=== PATIENT | female | born 1970 | race African-American/Black ===

== ENCOUNTER 2016-11-05 17:04 | Inpatient (IN) | payer OTHER ==
--- NOTE | ~2016-11-05 | DS ---
Discharge Summary [facility] [address] [place]. [address] NAME: LOLY GRIFFIN\ : 66 STATUS : DIS IN PAT#: [id number] AGE: 45 ADM/REG DATE : 11/06/16 MR#: [id number] REPORT SERV DATE: 11/08/16 DICTATED BY: JR. HOFFMAN WILLIAM JOHN DATE: 11/07/16 REPORT STATUS : Draft TRANSCRIBED BY: CHRISTINE DATE: 11/07/16 ADMISSION DATE: 11/06/2016 DISCHARGE DATE: 11/07/2016 DISCHARGE DIAGNOSES: 1. Acute kidney injury secondary to dehydration in the setting of diuretics and angiotensin receptor blockers. 2. Dehydration. 3. Essential hypertension. 4. Obstructive sleep apnea, on CPAP. 5. Bipolar disorder. 6. Chronic back pain. 7. Morbid obesity, with a body mass index of 51.7. OPERATIONS/PROCEDURES AND TREATMENTS: Include: Renal ultrasound done 11/06/2016, which showed kidneys to be symmetric and normal. There was an incidental left benign renal cyst. Otherwise, normal study. DISCHARGE MEDICATIONS: Include: 1. Norvasc 10 mg orally daily. 2. Cyanocobalamin 1000 mcg sublingually daily. 3. Ativan 1 mg orally daily p.r.n. 4. Hydroxyzine 50 mg four times a day. 5. Lyrica 75 mg twice a day. 6. [place] 5/325 one tablet every 8 hours as needed. 7. Flexeril 10 mg every 8 hours as needed. 8. Calcium citrate 1200 mg daily. 9. Multivitamin one tablet orally daily. 10.Benefiber daily. 11.Colace 100 mg daily as needed. Deleted off her current med list would include Cozaar 100 daily and hydrochlorothiazide 25 mg daily. CONSULTING PHYSICIAN: Dr. Haris Cuellar of Nephrology. HOSPITAL COURSE: The patient is a 45-year-old female who presented to the emergency room on 11/05/2016 with complaint of feeling lightheaded and dizzy. The patient also said she has had a very dry mouth for two to three days, and her urine output had significantly decreased. The patient said the symptoms had been going on increasingly for the past few weeks. She felt like she was drinking more fluid and had doubled up on her hydrochlorothiazide thinking this would help the problem. However, her urine output fell off and she presented to the emergency room. Of note, the patient is actually losing weight to be a candidate for bariatric surgery, and she feels that her blood pressure has actually dropped because of her weight loss. Initial exam showed a blood pressure of 135/77, temperature 98.6, heart rate 102, respiratory rate of 16, and saturating 98% on room air. Discharge Summary [address] [address] NAME: LOLY GRIFFIN\ : 66 STATUS : DIS IN PAT#: [id number] AGE: 45 ADM/REG DATE : 11/06/16 MR#: [id number] REPORT SERV DATE: 11/08/16 DICTATED BY: JR. HOFFMAN WILLIAM JOHN DATE: 11/07/16 REPORT STATUS : Draft TRANSCRIBED BY: CHRISTINE DATE: 11/07/16 Exam was remarkable for morbid obesity with dry mucosal membranes. Otherwise, no significant abnormalities. Laboratory was significant for a BUN of 31 and creatinine 1.5 with a normal creatinine of less than 1 for this patient. For complete details, please see Dr. Tomlin's dictated history and physical. The patient was admitted to the Clinical Decision Unit. She was placed on IV fluids. Her angiotensin receptor charlene and hydrochlorothiazide were withheld, and Nephrology was consulted. Nephrology requested a renal ultrasound which is detailed above and is normal. The patient's renal function improved somewhat by hospital day #2 with a BUN of 26, creatinine 1.3. She was putting out urine. The patient remained on IV fluids, and by hospital day #3, her renal markers had normalized to a BUN of 19 and creatinine of 1. The patient's Gr catheter was removed, and she will be discharged home. The recommendation is the patient not be placed back on diuretic and angiotensin active medications. Regarding essential hypertension, the patient is well controlled on Norvasc 10 mg daily. The remainder of the patient's health problems were stable throughout the hospitalization and were not addressed. DISCHARGE DIET: Regular. ACTIVITY: As tolerated. FOLLOWUP: Followup will be with Kiya Denise in one week, her primary care physician. For discharge exam and laboratory, please see the daily progress note. FOLLOWUP ISSUES: 1. Recommend followup basic metabolic profile in one week. Follow up with Kiya Denise. 2. Would recommend withholding diuretic and angiotensin active medications. This discharge took 32 minutes for patient encounter, coordination of care, and documentation. WJF/YUANL Neil Hoffman Jr, MD / [id number] CC: Neil Hoffman Jr, MD Amanda M. Tedstrom
--- NOTE | ~2016-11-05 | PREOPHP ---
PreOp History and Physical [place] [id number] [facility] [place]. [address] NAME: LOLY GRIFFIN : 66 STATUS : ADM Hector PAT#: [id number] AGE: 45 ADM/REG DATE : 11/05/16 MR#: [id number] REPORT SERV DATE: 11/06/16 DICTATED BY: DEREK CUELLAR DATE: 11/05/16 REPORT STATUS : Draft TRANSCRIBED BY: CHRISTINE DATE: 11/05/16 TIME: 8:30 p.m. REASON FOR CONSULTATION: Acute kidney injury. ASSESSMENT: Acute kidney injury in a 45-year-old morbidly obese female with no clear cut underlying etiology except with a specific gravity of 1.017 on a urinalysis. No proteinuria or hematuria. The patient chronically on HCTZ and losartan. The differential diagnosis includes: 1. Dehydration. 2. Acute urinary retention. 3. Question underlying rhabdomyolysis and possible elevation in CPK. 4. although clinically she does not appear to have any features to suggest this. PLAN: Therefore is: 1. Gr catheter placed tonight. 2. Renal ultrasound. 3. Repeat urinalysis. 4. Agree with hydration. 5. Hold HCTZ and losartan. 6. I do not order serologies at this time unless there is no improvement in renal function with the above measures. HISTORY OF PRESENT ILLNESS: History is obtained from the patient and records available. She is a 45-year-old female, no prior history of chronic kidney disease or end-stage renal failure, baseline creatinine 0.96 as of 10/11/2015 now with a creatinine of 1.5 after coming to the ER. She called her primary care physician when she described reduced urine output over the weekend. She had last voided on Saturday with minimal urine output over the weekend and I was advised to come to the ER. She complains of a dry mouth, but otherwise, relatively asymptomatic. She has chronic edema of her left lower extremity. No history of pain around it. No rash. No history of hematuria, hemoptysis, hematemesis, rash, arthritic symptoms, NSAID use, or history of hemoptysis or change in vision or hearing. She has a strong family history of chronic kidney disease and end-stage renal failure. Mother is on dialysis and apparently a sister is approaching dialysis as well. With the above concern, she came to the ER for evaluation, noted to have a creatinine of 1.5, and was subsequently admitted to the hospital. She also is slightly anemic with a hemoglobin 11.1 and no thrombocytopenia. PAST MEDICAL HISTORY: Includes a history of hypertension, obesity, chronic back pain, bipolar disorder. She has had a partial hysterectomy, tubal ligation, and section. ALLERGIES: TO STADOL, SULFA, BACTRIM, AND LATEX. SOCIAL HISTORY: She does not smoke cigarettes. No alcohol or medication or street drug usage. PreOp History and Physical [address] [place]. [address] NAME: LOLY GRIFFIN : 66 STATUS : ADM Hector PAT#: [id number] AGE: 45 ADM/REG DATE : 11/05/16 MR#: [id number] REPORT SERV DATE: 11/06/16 DICTATED BY: DEREK CUELLAR DATE: 11/05/16 REPORT STATUS : Draft TRANSCRIBED BY: CHRISTINE DATE: 11/05/16 FAMILY HISTORY: As described above. Mother is on dialysis. HOME MEDICATIONS: Amlodipine, cyanocobalamin, Flexeril, Colace, HCTZ, [place], Vistaril, lorazepam, Cozaar, multivitamin, Lyrica, Benefiber. REVIEW OF SYSTEMS: As per the HPI. PHYSICAL EXAMINATION: GENERAL: She is a morbidly obese female, in no acute distress. Awake, alert, appropriate to questions. VITAL SIGNS: Blood pressure is running in the 130s/70s. Heart rates in the 70s and afebrile. HEENT: Pupils are equal and reactive to light. She is not pale or jaundiced. Oral mucosa is moist. No pharyngitis. NECK: Supple. No thyromegaly. No carotid bruits heard. Trachea is central. Air entry is equal bilaterally. CHEST: Clear to auscultation. Cardiac apex is not displaced. S1-S2. No rub. ABDOMEN: Nontender. No hepatosplenomegaly. No tenderness, guarding, or rebound. Bowel sounds normal. EXTREMITIES: She has left leg edema 1+, but there is no tenderness around the calf area. There is no rash. Peripheral pulses are present dorsalis pedis, posterior tibial. No acute arthritic findings noted. No rash. No loss of turgor. NEURO: She is awake, alert, and oriented to time, place, and person. Cranial nerves are intact and the affect does not appear depressed at this time. LAB WORK: Sodium 138, potassium 3.5, chloride 100, CO2 of 28, BUN 31, creatinine 1.51, hemoglobin 11.1, hematocrit 33.8. White count is 5.1, platelet count is 305,000. Urinalysis as described. Ultrasound is pending. MG/MODL Derek Cuellar M.D. / [id number] CC: Neil Hoffman Jr, MD
--- NOTE | ~2016-11-05 | HP ---
History And Physical [place] [id number] [facility] [place]. [address] NAME: LOLY GRIFFIN : 66 STATUS : ADM Hector PAT#: [id number] AGE: 45 ADM/REG DATE : 11/05/16 MR#: [id number] REPORT SERV DATE: 11/06/16 DICTATED BY: SAMMI PRATER DATE: 11/05/16 REPORT STATUS : Draft TRANSCRIBED BY: CHRISTINE DATE: 11/05/16 DATE OF ADMISSION: 11/05/2016 Ms. Griffin is a 45-year-old female patient who comes in today because of feeling extremely lightheaded, dizzy in the last few days. She also states that she has an extremely dry mouth in the last two to three days also. She also states that her urine output has significantly decreased to a point where she has not urinated at all for the last 24 hours and this has happened acutely. This scared her and hence, she decided to come into the ER. The patient states that for the last week or two, she has been feeling dizzy and does have dry mouth. She also has been urinating very little for the last week or more. She thought that drinking more fluids and doubling up on her hydrochlorothiazide would help this problem. She did exactly this about three or four days ago. Despite this, the patient states that her urine output did not improve and kept going lower and lower until for the last 24 hours or so, she has not urinated at all or urinated very little. Hence, the patient decided to come into the ER. REVIEW OF SYSTEMS: Negative for headaches, blurry vision, trouble swallowing, chest pain, shortness of breath, fever, nausea, vomiting, abdominal pain, dysuria, hematuria, blood in stool, joint pains, etc. Other than the chronic low back pain the patient has, she denies any other joint pains. PAST MEDICAL HISTORY: Significant for morbid obesity, obstructive sleep apnea for which the patient uses CPAP machine at home, hypertension for which she takes hydrochlorothiazide on a daily basis, bipolar disorder, anxiety predominant for which she sees a psychiatrist at [facility] and the patient is on hydroxyzine and Ativan at nighttime for this. The patient also has significant low back pain from degenerative disk disease of the lumbar spine for which she is disabled currently. She states that she sees a depilatory painter for this and she is on [place] 5/325 three to four times a day for this and this helps. PAST SURGICAL HISTORY: Nothing significant. The patient actually is waiting for weight loss surgery. SOCIAL HISTORY: The patient does not smoke or use any alcohol. The patient denies any illegal drug use. The patient is not . The patient does have a grown son who is in his 20s. FAMILY HISTORY: Positive for kidney problems in the family and many of her family members have had kidney disease and have also been on dialysis which is the main reason that the patient was really scared. History And Physical [address] [address] NAME: LOLY GRIFFIN : 66 STATUS : ADM Hector PAT#: [id number] AGE: 45 ADM/REG DATE : 11/05/16 MR#: [id number] REPORT SERV DATE: 11/06/16 DICTATED BY: SAMMI PRATER DATE: 11/05/16 REPORT STATUS : Draft TRANSCRIBED BY: CHRISTINE DATE: 11/05/16 ALLERGIES: PATIENT IS ALLERGIC TO STADOL, SULFA, BACTRIM, TRIMETHOPRIM AND LATEX. HOME MEDICATIONS: Include Norvasc 10 mg p.o. daily, vitamin B12, Flexeril 10 mg p.o. every eight hours, docusate 100 mg p.o. daily p.r.n., hydrochlorothiazide 25 mg once a day, [place] 5/325 p.o. t.i.d., hydroxyzine 50 mg p.o. four times a day, Ativan 1 mg p.o. at nighttime, losartan 100 mg once a day, multivitamins and mineral tablets once a day, Lyrica 75 mg twice a day, and Benefiber and calcium. PHYSICAL EXAMINATION: GENERAL: On examination, the patient is alert, awake, oriented, and does not seem to be in any distress. She is morbidly obese and her skin and mucous membranes appear dry at this time. VITAL SIGNS: I have on this patient show the following: Blood pressure is 135/77, temperature is 98.6, pulse is 102, respirations 16 per minute, O2 saturations 98% on room air. The patient is breathing comfortably on room air right now. HEENT: Unremarkable. There is no facial droop or facial asymmetry. NECK: There is no JVD or thyromegaly or lymphadenopathy. CARDIOVASCULAR SYSTEM: S1, S2 appreciated. Sinus rhythm. Mild tachycardia noted, but I could not appreciate any murmurs, rubs, or gallops. RESPIRATORY SYSTEM: Clear lungs. No rales or rhonchi. Good lung expansion noted, however, poor air entry especially to the lung bases given the patient's morbid obesity. ABDOMEN: Soft, nontender, nondistended. Bowel sounds are appreciated. Obese abdomen noted. No organomegaly noted. EXTREMITIES: There is mild 1+ bilateral ankle edema probably from chronic venous insufficiency, but I could not appreciate any other abnormalities in the extremities. Pedal pulses are felt. NEUROLOGICAL: No significant neurological deficits. PSYCHIATRIC: Patient does have a history of bipolar disorder with severe anxiety predominantly for which she takes medications as described above. MUSCULOSKELETAL: Patient does have chronic low back pain from DJD for which she states that she is disabled and sees a pain specialist through whom she gets [place] three times a day. LABORATORY DATA: Labs I have on this patient include a CBC that shows a WBC count of 5.1, hemoglobin 11.1, hematocrit 33.8, platelet count of 305. Electrolyte profile shows sodium 138, potassium 3.5, BUN is 31, creatinine is 1.5, glucose is normal, calcium is normal. Urinalysis shows no evidence of any significant UTI even though urine appearance is a little hazy and a few bacteria are seen. She is negative for leukocyte esterase, negative for nitrites and there is no blood in the urine. ASSESSMENT: 1. Oliguria, dizziness, dehydration, and acute kidney injury. For this, we will hold the patient's hydrochlorothiazide and gave her IV lactated Ringer at 125 mL an hour for 24 hours and consult Nephrology. 2. For her hypertension, we will continue her Norvasc. 3. Obstructive sleep apnea, continue home CPAP. 4. Bipolar disorder with generalized anxiety mainly-continue her home medications that include hydroxyzine 50 mg four times a day and Ativan 1 mg at nighttime. History And Physical [address] [place]. [address] NAME: LOLY GRIFFIN : 66 STATUS : ADM Hector PAT#: [id number] AGE: 45 ADM/REG DATE : 11/05/16 MR#: [id number] REPORT SERV DATE: 11/06/16 DICTATED BY: SAMMI PRATER DATE: 11/05/16 REPORT STATUS : Draft TRANSCRIBED BY: CHRISTINE DATE: 11/05/16 5. Chronic low back pain from degenerative joint disease, continue her home medication that includes Lortab or [place] 5/325 one p.o. t.i.d. 6. We will also obtain renal ultrasound at this time. 7. We will also go ahead and hold her Cozaar and hold her hydrochlorothiazide at this time. Given her dizziness I would like to hold her Lyrica too at this time. 8. We will observe and essentially put her under observation for the next 24 to 48 hours and see how she does and see how her numbers too. The patient is agreeable to this and we will admit the patient for observation. CAMELIA/CHRISTINE Sammi Prater M.D. / [id number]
[2016-11-05 15:54] LABS: BASOPHILS 0.6 %; BASOPHILS ABSOLUTE 0.03 10/3/uL (0.0-0.16); ER CBC TAT 0 Hrs 05 Mins; HEMATOCRIT 33.8 % (36.0-48.0); HEMOGLOBIN 11.1 g/dL (12.0-16.0); IMMATURE GRANULOCYTES 0.2 %; IMMATURE GRANULOCYTES ABSOLUTE 0.01 10/3/uL (0.0-0.11); LYMPHOCYTES 47.1 %; MEAN CORPUS HGB CONC 32.8 g/dL (32.0-36.0); MEAN CORPUSCULAR VOLUME 91.4 fL (80-100); MEAN PLATELET VOLUME 9.3 fL (9.2-13.0); MONOCYTES ABSOLUTE 0.46 10/3/uL (0.21-1.20); NEUTROPHILS 41.1 %; PLATELET COUNT 305 10/3/uL (150-400); RBC DISTRIBUTION WIDTH 13.1 % (12.0-16.0); WHITE BLOOD CELLS 5.1 10/3/uL (4.5-10.5)
[2016-11-05 15:55] LABS: MANUAL DIFF NO %
[2016-11-05 16:06] LABS: BUN (BLOOD UREA NITROGEN) 31 MG/DL (6-23); CALCIUM, SERUM 9.1 MG/DL (8.5-10.4); CHLORIDE, SERUM 100 MMOL/L (96-112); CO2 (CARBON DIOXIDE) 28 MMOL/L (24-34); CREATININE 1.51 MG/DL (0.55-1.02); GFR AFRICAN AMERICAN 47 ML/MIN (>=60); GFR NON AFRICAN AMERICAN 41 ML/MIN (>=60); GLUCOSE, SERUM 92 MG/DL (60-99); POTASSIUM, SERUM 3.5 MMOL/L (3.5-5.3); SODIUM, SERUM 138 MMOL/L (135-148)
[2016-11-05 16:28] LABS: ASCORBIC ACID (UR NOT ORDER) NEG (NEG); BILIRUBIN, URINE NEGATIVE (NEG); ER URINALYSIS TAT 0 Hrs 10 Mins; KETONE, URINE NEGATIVE (NEG); LEUKOCYTE ESTERASE(NOT OR NEG (NEG); NITRITE (URINE) NEG (NEG); WBC (NOT ORDERED) (RFLEX) 5 (0-5)
[2016-11-05] MEDS ORDERED: HYDROCHLOROT25 MG PO (17:43)
[2016-11-05] MEDS ORDERED: COZAAR100 MG PO (17:43)
[2016-11-05] MEDS ORDERED: VIST50 PO (17:43)
[2016-11-05] MEDS ORDERED: NORV10 PO (17:43)
[2016-11-05] MEDS ORDERED: ATV1 PO (17:44)
[2016-11-05] MEDS ORDERED: LYRICA75 PO (17:44)
[2016-11-05] MEDS ORDERED: FLEX PO (17:45)
[2016-11-05] MEDS ORDERED: NORCO1 TA1 PO (17:45)
[2016-11-05] MEDS ORDERED: CALCIUM CITRATE PO (17:46)
[2016-11-05] MEDS ORDERED: BENEFIBER PO (17:47)
[2016-11-05] MEDS ORDERED: VITAMIN B-121000 MC1 SL (17:47)
[2016-11-05] MEDS ORDERED: THERA M PLUS PO (17:47)
[2016-11-05] MEDS ORDERED: DSS PO (17:48)
[2016-11-06 01:21] LABS: ASCORBIC ACID (UR NOT ORDER) NEG (NEG); BILIRUBIN, URINE NEGATIVE (NEG); KETONE, URINE NEGATIVE (NEG); LEUKOCYTE ESTERASE(NOT OR NEG (NEG); WBC (NOT ORDERED) (RFLEX) 2 (0-5)
[2016-11-06 04:50] LABS: PARTIAL THROMBO TIME 27.8 SEC (22.5-37.2); PROTIME (NOT ORD) 13.1 SEC (12.0-14.5)
[2016-11-06 05:01] LABS: ALBUMIN 3.1 G/DL (3.5-5.0); ALKALINE PHOSPHATASE 73 U/L (45-117); CALCIUM, SERUM 8.6 MG/DL (8.5-10.4); CHLORIDE, SERUM 104 MMOL/L (96-112); CO2 (CARBON DIOXIDE) 29 MMOL/L (24-34); CREATININE 1.26 MG/DL (0.55-1.02); GFR AFRICAN AMERICAN 59 ML/MIN (>=60); GFR NON AFRICAN AMERICAN 51 ML/MIN (>=60); GLUCOSE, SERUM 103 MG/DL (60-99); PHOSPHORUS, SERUM 3.8 MG/DL (2.5-4.5); POTASSIUM, SERUM 3.5 MMOL/L (3.5-5.3); SGOT(AST) 23 U/L (5-40); SGPT(ALT) 32 U/L (5-65); SODIUM, SERUM 141 MMOL/L (135-148); TOTAL BILIRUBIN 0.4 MG/DL (0-1.2); TOTAL PROTEIN 6.9 G/DL (6.0-8.5)
[2016-11-06 05:07] LABS: BUN (BLOOD UREA NITROGEN) 26 MG/DL (6-23); DIRECT BILIRUBIN < 0.1 MG/DL (0.0-0.4); INDIRECT BILIRUBIN(NOT ORDER) 0.3 MG/DL (0.1-0.9)
[2016-11-06 05:11] LABS: BASOPHILS 0.4 %; BASOPHILS ABSOLUTE 0.02 10/3/uL (0.0-0.16); EOSINOPHILS 3.2 %; EOSINOPHILS ABSOLUTE 0.16 10/3/uL (0.0-0.53); HEMATOCRIT 31.7 % (36.0-48.0); HEMOGLOBIN 10.3 g/dL (12.0-16.0); LYMPHOCYTES 50.8 %; LYMPHOCYTES ABSOLUTE 2.52 10/3/uL (0.67-4.30); MEAN CORPUS HGB CONC 32.5 g/dL (32.0-36.0); MEAN CORPUSCULAR VOLUME 92.4 fL (80-100); MEAN PLATELET VOLUME 9.4 fL (9.2-13.0); MONOCYTES 8.9 %; MONOCYTES ABSOLUTE 0.44 10/3/uL (0.21-1.20); NEUTROPHILS 36.7 %; NEUTROPHILS ABSOLUTE 1.82 10/3/uL (2.02-8.40); PLATELET COUNT 294 10/3/uL (150-400); RBC DISTRIBUTION WIDTH 12.9 % (12.0-16.0); RED CELL COUNT 3.43 10/6/uL (4.0-5.6)
[2016-11-06 05:12] LABS: MANUAL DIFF NO %
[2016-11-07 05:45] LABS: ALBUMIN 2.9 G/DL (3.5-5.0); BUN (BLOOD UREA NITROGEN) 19 MG/DL (6-23); CALCIUM, SERUM 8.3 MG/DL (8.5-10.4); CHLORIDE, SERUM 108 MMOL/L (96-112); CO2 (CARBON DIOXIDE) 27 MMOL/L (24-34); CREATININE 0.99 MG/DL (0.55-1.02); GFR AFRICAN AMERICAN 79 ML/MIN (>=60); GFR NON AFRICAN AMERICAN 68 ML/MIN (>=60); GLUCOSE, SERUM 114 MG/DL (60-99); PHOSPHORUS, SERUM 2.9 MG/DL (2.5-4.5); POTASSIUM, SERUM 3.7 MMOL/L (3.5-5.3); SODIUM, SERUM 144 MMOL/L (135-148)
== END 2016-11-07 10:28 | disposition home or self-care (01) | DRG 683 ==
LOC: ER 17:04 → CDU1 18:32
PROVIDERS: Internal Medicine; Internal Medicine Nephrology; Physician Assistant
DX: N17.9 Acute kidney failure, unspecified (principal); Z68.43 Body mass index [BMI] 50.0-59.9, adult; I10 Essential (primary) hypertension; E86.0 Dehydration; G47.33 Obstructive sleep apnea (adult) (pediatric); F41.1 Generalized anxiety disorder; F31.9 Bipolar disorder, unspecified; E66.01 Morbid (severe) obesity due to excess calories; M47.9 Spondylosis, unspecified; Z88.8 Allergy status to other drugs, medicaments and biological substances; Z88.2 Allergy status to sulfonamides; Z91.040 Latex allergy status
CPT/HCPCS: 76775; 80048; 80069; 80076; 81001; 82962; 83735; 84443; 85025; 85610; 85730; 99284; A9270-GY